=== PATIENT | female | born 1990 | race Hispanic/Latino ===

== ENCOUNTER 2021-09-03 20:44 | Emergency (ER) | payer SELFPAY ==
[2021-09-03] MEDS ORDERED: Boostrix 0.5 ML (Tdap) VIAL ONE ×2 (22:00→22:21)
[2021-09-03] MEDS ORDERED: Lidocaine 1% w/Epinephrine 1:100K 20 ML VIAL ONE (22:00)
== END 2021-09-04 00:01 | disposition home or self-care (01) ==
LOC: ERS 20:44
DX: S51.812A Laceration without foreign body of left forearm, initial encounter (principal); W25.XXXA Contact with sharp glass, initial encounter
CPT/HCPCS: 12002; 90715